=== PATIENT | female | born 1995 | race Caucasian/White ===

== ENCOUNTER 2016-12-02 04:59 | Emergency (ER) | payer OTHER ==
[2016-12-02] MEDS ORDERED: OMEPRAZOLE40 M2 PO (05:07)
[2016-12-02] MEDS ORDERED: ACCUTANE PO (05:07)
[2016-12-02] MEDS ORDERED: LEXAPRO10 M2 PO (05:07)
[2016-12-02] MEDS ORDERED: CARAFATE1 G2 PO (05:40)
[2016-12-02] MEDS ORDERED: ACID CONTROL150 M2 PO (05:40)
[2016-12-19] MEDS ORDERED: ACID CONTROL150 M2 PO (10:57)
[2016-12-19] MEDS ORDERED: PROTONIX40 M2 PO (10:58)
[2016-12-19] MEDS ORDERED: VITAMIN D310000 UNI1 PO (10:58)
[2016-12-19] MEDS ORDERED: IBUPROFEN200 M2 PO (10:59)
[2016-12-19] MEDS ORDERED: IUD (11:00)
[2017-06-09] MEDS ORDERED: LAMICTAL PO (20:00)
[2017-06-09] MEDS ORDERED: PROPRANOLOL HCL20 M2 PO (20:00)
[2017-06-09] MEDS ORDERED: LAMICTAL25 M2 PO (20:01)
== END 2016-12-02 06:17 ==
LOC: EDMED 04:59
DX: K21.9 Gastro-esophageal reflux disease without esophagitis (principal); F41.9 Anxiety disorder, unspecified; Z88.0 Allergy status to penicillin; Z79.899 Other long term (current) drug therapy; F17.210 Nicotine dependence, cigarettes, uncomplicated

== ENCOUNTER 2016-12-24 06:09 | Day surgery (SDC) | payer BC ==
[~2016-12-24 06:09] MED LIST: ACCUTANE PO; ACID CONTROL150 M2 PO; CARAFATE1 G2 PO; IBUPROFEN200 M2 PO; IUD; LEXAPRO10 M2 PO; OMEPRAZOLE40 M2 PO; PROTONIX40 M2 PO; VITAMIN D310000 UNI1 PO
[2016-12-24 07:31] LABS: HCT-HEMATOCRIT 38.1 % (34.0-49.0); HGB-HEMOGLOBIN 12.1 gm/dl (12.0-15.5); MCV (MEAN CELL VOLUME) 89.9 fl (82.0-96.0); RED CELL DISTRIBUTION WIDTH 13.1 % (12.4-16.4)
[2017-06-09] MEDS ORDERED: PROPRANOLOL HCL20 M2 PO (20:00)
[2017-06-09] MEDS ORDERED: LAMICTAL PO (20:00)
[2017-06-09] MEDS ORDERED: LAMICTAL25 M2 PO (20:01)
== END 2016-12-24 09:28 ==
LOC: SHSA 06:09 → ENDOS 08:25
PROVIDERS: Anesthesiology
PROC: 0DB98ZX Excision of Duodenum, Via Natural or Artificial Opening Endoscopic, Diagnostic (ICD-10-PCS; principal; 2016-12-24)
PROC: 0DB68ZX Excision of Stomach, Via Natural or Artificial Opening Endoscopic, Diagnostic (ICD-10-PCS; 2016-12-24)
DX: K29.50 Unspecified chronic gastritis without bleeding (principal); F17.210 Nicotine dependence, cigarettes, uncomplicated; Z88.1 Allergy status to other antibiotic agents; Z79.899 Other long term (current) drug therapy; Z98.890 Other specified postprocedural states

== ENCOUNTER 2017-02-16 02:21 | Emergency (ER) | payer BC ==
[2017-02-16] MEDS ORDERED: CYMBALTA60 M1 PO (02:29)
[2017-02-16] MEDS ORDERED: ALDACTONE100 M1 PO (02:30)
[2017-02-16] MEDS ORDERED: ZOFRAN4 M2 PO (02:31)
[2017-02-16] MEDS ORDERED: DAILY VITE1 EACH PO (02:31)
[2017-02-16 03:27] LABS: BASO % 0.2 % (0-2); EOSINOPHIL ABSOLUTE COUNT 0.1 tho/cmm (0.0-0.7); HCT-HEMATOCRIT 40.7 % (34.0-49.0); HGB-HEMOGLOBIN 13.6 gm/dl (12.0-15.5); IMMATURE GRANULOCYTES ABSOLUTE 0.02 tho/cmm (0-0.03); IMMATURE GRANULOCYTES PERCENT 0.2 % (0-0.3); LYMPH % 29.3 % (20-45); LYMPH ABSOLUTE COUNT 3.3 tho/cmm (0.8-4.5); MCH (MEAN CORPUSCULAR HGB) 29.4 pg (28.0-32.0); MCHC MEAN CORPUSCULAR HGB CONC 33.4 % (32.0-36.0); MCV (MEAN CELL VOLUME) 88.1 fl (82.0-96.0); MONO % 5.9 % (0-12); MONOCYTE ABSOLUTE COUNT 0.7 tho/cmm (0.0-1.2); NEUTROPHIL ABSOLUTE COUNT 7.2 tho/cmm (1.6-8.0); NEUTROPHIL-AUTOMATED 7.2 tho/cmm (1.6-8.0); NEUTROPHILS % 63.4 % (40-80); PLATELET COUNT 289 tho/cmm (150-450); RED BLOOD COUNT 4.62 mil/cmm (4.00-5.20); WHITE BLOOD COUNT 11.3 tho/cmm (4.0-10.0)
[2017-02-16 03:49] LABS: ALB/GLOB RATIO 1.2 (0.8-2.0); ALBUMIN 4.2 g/dl (3.5-5.0); ALKALINE PHOSPHATASE 109 U/L (33-138); ALT/SGPT 20 U/L (12-78); ANION GAP 12 mmol/L (0-20); AST/SGOT 17 U/L (10-40); BILIRUBIN,TOTAL 0.3 mg/dl (0-1.5); BLOOD UREA NITROGEN 8 mg/dl (6-24); CARBON DIOXIDE-VENOUS 27 mmol/L (22-32); CHLORIDE 106 mmol/l (96-110); CREATININE 0.72 mg/dl (0.50-1.10); GLUCOSE 86 mg/dL (70-110); POTASSIUM 3.9 mmol/L (3.7-5.1); SODIUM 141 mmol/L (135-145); eGFR VALUE FOR BLACK >90 mL/Min
[2017-02-16 03:53] LABS: TSH-THYROID STIMULATING HORM. 3.51 uIU/ml (0.40-3.80)
[2017-02-16] MEDS ORDERED: XANAX0.5 M1 PO (04:41)
[2017-06-09] MEDS ORDERED: PROPRANOLOL HCL20 M2 PO (20:00)
[2017-06-09] MEDS ORDERED: LAMICTAL PO (20:00)
[2017-06-09] MEDS ORDERED: LAMICTAL25 M2 PO (20:01)
== END 2017-02-16 04:51 ==
LOC: EDMED 02:21
PROVIDERS: Physician Assistant
DX: F41.9 Anxiety disorder, unspecified (principal); R07.9 Chest pain, unspecified; Z88.0 Allergy status to penicillin; F32.9 Major depressive disorder, single episode, unspecified; K21.9 Gastro-esophageal reflux disease without esophagitis; Z79.899 Other long term (current) drug therapy